=== PATIENT | female | born 1990 | race Two or more races ===

== ENCOUNTER → 2019-05-25 | Outpatient (CLI) | payer OTHER | END | disposition home or self-care (01) | LOC: PRENATAL 10:41 | DX: O35.3XX1 Maternal care for (suspected) damage to fetus from viral disease in mother, fetus 1 (principal) ==

== ENCOUNTER → 2019-08-20 | Outpatient (CLI) | payer OTHER | END | disposition home or self-care (01) | LOC: PRENATAL 08:56 | DX: O26.843 Uterine size-date discrepancy, third trimester (principal); O36.8121 Decreased fetal movements, second trimester, fetus 1 ==